=== PATIENT | male | born 1975 | race African-American/Black ===

== ENCOUNTER 2016-03-04 14:48 | Emergency (ER) | payer OTHER ==
[2016-03-04 16:30] VITALS: BP 118/69
[2016-03-04] MEDS ORDERED: Ibuprofen TAB* 200 MG PO ONE (17:35)
--- NOTE | 2016-03-04 18:14 | UC ---
UC General HPI - HPI Summary HPI Summary: TWO DAYS OF LEFT JAW PAIN. NO TRAUMA. NO EAR ACHE. NO DENTAL PAIN. LEFT SIDE HURTS WHEN OPENING JAW. NO FEVER. NO HEADACHE. NO NECK PAIN. - History of Current Complaint Chief Complaint: UCGeneralIllness Stated Complaint: JAW PAIN Time Seen by Provider: 03/04/16 16:46 Hx Obtained From: Patient Onset/Duration: Sudden Onset - WOKE UP WITH IT, Lasting Days, Still Present Onset Severity: Moderate Current Severity: Moderate Pain Intensity: 4 Associated Signs & Symptoms: Positive: Other - LEFT JAW PAIN. Negative: Abdominal Pain, Cough, Chest Pain, Diarrhea, Dysuria, Edema, Fever, Headache, Nausea, SOB, Trauma - Allergy/Home Medications Allergies/Adverse Reactions: Allergies Allergy/AdvReac Type Severity Reaction Status Date / Time No Known Allergies Allergy Verified 11/22/15 13:19 PMH/Surg Hx/FS Hx/Imm Hx Previously Healthy: Yes - Surgical History Surgical History: None - Family History Known Family History: Positive: Other - depression and alcohol abuse - Social History Occupation: Employed Full-time Lives: With Family Alcohol Use: Occasionally Substance Use Type: Marijuana Substance Use Comment - Amount & Last Used: NOT IN A WHILE Smoking Status (MU): Never Smoked Tobacco Review of Systems Constitutional: Negative Skin: Negative Eyes: Negative ENT: Other - LEFT SIDED JAW PAIN Respiratory: Negative Cardiovascular: Negative Gastrointestinal: Negative Genitourinary: Negative Motor: Negative Neurovascular: Negative Musculoskeletal: Arthralgia - LEFT JAW Neurological: Negative Psychological: Negative All Other Systems Reviewed And Are Negative: Yes Physical Exam Triage Information Reviewed: Yes Appearance: Well-Appearing, No Pain Distress, Well-Nourished Vital Signs: Initial Vital Signs Temp 98.7 F 03/04/16 16:25 Pulse 85 03/04/16 16:25 Resp 16 03/04/16 16:25 BP 118/69 03/04/16 16:25 Pulse Ox 99 03/04/16 16:25 Vital Signs Reviewed: Yes Eye Exam: Normal ENT: Positive: Pharynx normal, TMs normal, Other: - LEFT SIDED JAW PAIN NONTRAUMATIC, WORSE WITH EXTENSION OF JAW Dental Exam: Normal Dental: Negative: Percussion Tenderness @ Neck exam: Normal Neck: Positive: Supple, Nontender, No Lymphadenopathy Respiratory Exam: Normal Respiratory: Positive: Chest non-tender, Lungs clear, Normal breath sounds, No respiratory distress, No accessory muscle use Cardiovascular Exam: Normal Cardiovascular: Positive: RRR, No Murmur, Pulses Normal Abdominal Exam: Normal Abdomen Description: Positive: Nontender, No Organomegaly Musculoskeletal: Positive: Strength Intact - LEFT JAW PAIN WITH OPENING MOUTH, ROM Intact, No Edema, Other: - LEFT JAW PAIN WITH OPENING MOUTH AND WITH BITING Neurological Exam: Normal Psychological Exam: Normal Skin Exam: Normal Course/Dx - Differential Dx - Multi-Symptom Differential Diagnoses: Other - DENTAL PAIN, TMJ, SPRAIN, MIGRAINE, TEPORAL ARTERITIS Provider Diagnoses: TMJ Discharge - Discharge Plan Condition: Stable Disposition: HOME Prescriptions: Naproxen [Naproxen 500 MG TABS] 500 mg PO BID #10 tab Patient Education Materials: Temporomandibular Disorder (ED) Referrals: [facility] [Outside] Richard Alvarez MD [Primary Care Provider] - Additional Instructions: PHYSICAL THERAPY REFERRAL: TMJ You have been prescribed physical therapy. Treatments may include stretching, exercise, application of heat or cold, and other modalities. After an injury, PT can reduce swelling and pain. In recovery, PT is used to restore mobility and strength. Your specific treatment goals are: ___X__ Reduction of Swelling (EGS, US, ice as needed) ___X__ Pain Reduction (EGS, US, ice as needed) TENS Pack Fitting and Instruction Wound Hydrotherapy __X___ Preservation of Mobility ___X__ Pentecostalism of Mobility ___X__ Strength Pentecostalism ___X__ Work or Sports Hardening This instruction sheet also serves as your PHYSICAL THERAPY REFERRAL! Please take it with you to the therapist, so he/she will be aware of your diagnosis and treatment plan. You may see the physical therapist of your choice for these treatments, but may wish to check with your insurance to be sure the provider you select is covered. It's important to see the doctor to whom you have been referred for follow up.
== END 2016-03-04 17:47 | disposition home or self-care (01) ==
LOC: UCEAST 14:48
DX: M26.609 Unspecified temporomandibular joint disorder, unspecified side (principal); F12.90 Cannabis use, unspecified, uncomplicated
CPT/HCPCS: 99212; A9270-GY; G0463